=== PATIENT | female | born 1935 | race African-American/Black ===

== ENCOUNTER → 2017-04-26 | Outpatient (CLI) | payer MEDICARE, BC ==
[2017-04-26 11:02] LABS: Blood Urea Nitrogen 19 mg/dL (7-17); Non-African American GFR(MDRD) 60 (>60 ml/min/1.73 sqM)
--- NOTE | 2017-04-26 12:37 | CT ---
EXAMINATION TYPE: CT abdomen pelvis w con DATE OF EXAM: 04/26/2017 COMPARISON: 10/25/2013 HISTORY: LLQ pain CT DLP: 1778 mGycm CONTRAST: CT scan of the abdomen and pelvis is performed with Oral Contrast and with IV Contrast, patient injec anisha with 100 mL of Omnipaque 300. FINDINGS: LUNG BASES-: No visible nodule. No infiltrate. There is a small hiatal hernia. LIVER/GB: No calcified gallstones. No space occupying hepatic lesion. Biliary tree is of normal ca liber. PANCREAS: No inflammation. No distinct mass. SPLEEN: No splenic enlargement. No lesion seen. ADRENALS: No nodule. No thickening. KIDNEYS/BLADDER: No hydronephrosis. No nephrolithiasis. No disctinct renal mass. Urinary bladder g rossly unremarkable. BOWEL: There is minimal stranding surrounding the proximal sigmoid colon with superimposed diverticul osis felt to reflect very mild diverticulitis. No evidence for perforation or abscess. No obstructive changes seen. The appendix is not visualized. GENITAL ORGANS: No gross abnormality. LYMPH NODES: No greater than 1cm abdominal or pelvic lymph nodes are appreciated. AORTA: No significant abnormality. OSSEOUS STRUCTURES: Severe degenerative change of the lumbar spine with curvature identified. Postope rative changes of the hips. OTHER: No significant additional abnormality is seen. IMPRESSION: 1. Very mild uncomplicated diverticulitis of the proximal sigmoid colon.
== END | disposition home or self-care (01) ==
LOC: RADCTMAIN 10:18
PROVIDERS: ATTEND Family Medicine
DX: K57.32 Diverticulitis of large intestine without perforation or abscess without bleeding (principal); Z88.5 Allergy status to narcotic agent; Z88.8 Allergy status to other drugs, medicaments and biological substances
CPT/HCPCS: 82565; 84520; 74177; 36415; Q9967

== ENCOUNTER → 2018-03-21 | Outpatient (CLI) | payer MEDICARE, BC | END | disposition home or self-care (01) | LOC: LABWHC1 12:21 | PROVIDERS: ATTEND Otolaryngology | DX: D33.3 Benign neoplasm of cranial nerves (principal) | CPT/HCPCS: 36415; 82565; 84520 ==

== ENCOUNTER → 2018-04-11 | Outpatient (CLI) | payer MEDICARE, BC | END | disposition home or self-care (01) | LOC: RADMRIMAIN 17:29 | PROVIDERS: ATTEND Otolaryngology | DX: Z53.9 Procedure and treatment not carried out, unspecified reason (principal) ==

== ENCOUNTER → 2018-04-12 | Outpatient (CLI) | payer MEDICARE, BC ==
--- NOTE | 2018-04-12 08:44 | MR ---
EXAMINATION TYPE: MR brain and iac wo/w con DATE OF EXAM: 04/12/2018 COMPARISON: NONE HISTORY: Acoustic neuroma TECHNIQUE: Multiplanar, multisequence images of the brain and brainstem is performed without and with IV contras t, utilizing 9 mL intravenous Gadavist . FINDINGS: Diffusion weighted images demonstrate no evidence of a recent infarct or other diffusion ab normality. Changes of chronic sinusitis noted. There is mild to moderate generalized degenerative change. A few scattered areas of abnormal signal in the white matter are noted as well as in the periventricular re gion which are nonspecific but most typical remote microvascular ischemia. There is a stable 11 x 4 mm enhancing right cerebellar pontine angle mass. Midline structures demonstrate normal morphology. The craniocervical junction appears within normal limits. Partially empty sella turcica noted. Post contrast images demonstrate no abnormal enhancemen t. IMPRESSION: 1. 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 2. Stable degenerative and nonspecific white matter changes most typical of mild remote microvascular ischemia.
== END | disposition home or self-care (01) ==
LOC: RADMRIMAIN 06:57
PROVIDERS: ATTEND Otolaryngology
DX: R90.82 White matter disease, unspecified (principal); D33.3 Benign neoplasm of cranial nerves
CPT/HCPCS: 70553; A9581

== ENCOUNTER → 2019-04-01 | Outpatient (CLI) | payer MEDICARE, BC ==
--- NOTE | 2019-04-01 10:16 | MR ---
EXAMINATION TYPE: MR iac wo/w con DATE OF EXAM: 04/01/2019 COMPARISON: Prior MR brain 04/12/2018 HISTORY: R acoustic neuroma TECHNIQUE: Multiplanar, multisequence images of the brain and brainstem, small [id number] and high resolution images through the internal auditory canals is performed without and with IV contrast, utilizing 9.5 mL intravenous Gadavist . FINDINGS: Diffusion weighted images demonstrate no evidence of a recent infarct or other diffusion ab normality. The abnormal signal within the internal auditory canal is again noted and shows a similar appearance on the right. There is no extra-axial fluid collection or significant interval change in w bindu matter signal abnormality. The ventricular system and cisternal spaces are normal in size and a ppearance. The brain volume is age appropriate. Midline structures demonstrate stable morphology, there is a partially empty sella as on prior. The craniocervical junction appears within normal limits. Post contrast images demonstrate stable enhanc ement. The dural venous sinuses appear patent. The visualized sinuses are clear and the globes are in tact. IMPRESSION: Stable findings, findings compatible with acoustic neuroma on the right.
== END ==
LOC: RADMRIMAIN 09:00
PROVIDERS: ATTEND Family Medicine
DX: D33.3 Benign neoplasm of cranial nerves (principal)
CPT/HCPCS: 70553; A9585

== ENCOUNTER → 2020-05-29 | Outpatient (CLI) | payer MEDICARE, BC ==
--- NOTE | 2020-05-29 22:11 | MR ---
EXAMINATION TYPE: MR lumbar spine wo con DATE OF EXAM: 05/29/2020 COMPARISON: None HISTORY: Chronic low back pain, stenosis. History surgery CONTRAST: 0 mL intravenous Gadavist. TECHNIQUE: Multiplanar, multisequence images of the lumbar spine were acquired. FINDINGS: L5-S1: There is loss of disc height is level. Facet hypertrophy has left posterior lateral thecal sac compression. Moderate right and severe left foraminal stenosis present. No AP spinal canal stenosis is present. L4-L5: Significant disc bulge is evident. Facet hypertrophy is posterior lateral thecal sac compressi on. Moderate bilateral foraminal narrowing is present from facet hypertrophy. L3-L4: L disc bulging is anterior thecal sac flattening. Facet hypertrophy is posterior lateral theca l sac compression. Mild lateral canal narrowing may be present. Moderate to severe right and severe l eft foraminal stenosis is present. L2-L3: Broad-based disc bulge is present with anterior thecal sac flattening. Facet hypertrophy is pr esent on the left with left posterior lateral thecal sac compression. There is moderate to severe lef t foraminal stenosis. L1-L2: Mild disc bulge is present with anterior thecal sac flattening. No AP spinal canal stenosis pr esent. Facet hypertrophy is present. T12-L1: There is loss of disc height is level. Facet hypertrophy is present with posterior lateral th ecal sac compression. Mild foraminal narrowing is present. Cord terminates at T12-L1 level. Vertebral body heights are preserved. Disc desiccation is present. S coliosis is present. IMPRESSION: 1. Degenerative disc changes greatest at L5-S1 and at the T12-L1 and L1-2 levels. 2. Facet hypertrophy throughout the lumbar spine contributing to moderate to severe foraminal narrowi ng discussed above. Some lateral canal narrowing may be present to mild degree L3-L4 secondary to fac et hypertrophy
== END | disposition home or self-care (01) ==
LOC: RADMRIMAIN 16:25
PROVIDERS: ATTEND Neurological Surgery
DX: M48.061 Spinal stenosis, lumbar region without neurogenic claudication (principal); M47.895 Other spondylosis, thoracolumbar region; M47.896 Other spondylosis, lumbar region; M47.897 Other spondylosis, lumbosacral region
CPT/HCPCS: 72148

== ENCOUNTER → 2021-07-23 | Outpatient (CLI) | payer MEDICARE, BC ==
--- NOTE | 2021-07-23 16:28 | MR ---
EXAMINATION TYPE: MR iac wo/w con DATE OF EXAM: 07/23/2021 COMPARISON: Prior exam are I IAC dated 04/01/2019 HISTORY: Right side hearing loss, acoustic neuroma. TECHNIQUE: Multiplanar, multisequence images of the brain and brainstem is performed without and with IV contras t, utilizing 10 mL intravenous Gadavist , small [id number] high-resolution images obtained through the internal auditory canals. FINDINGS: Diffusion weighted images demonstrate no evidence of a recent infarct or other diffusion ab normality. There is no extra-axial fluid collection or significant interval change in white matter s ignal abnormality, scattered pericallosal, subcortical hyperintensities are again noted within the de ep white matter and inversion recovery and T2-weighted sequences. The ventricular system and cistern al spaces are normal in size and appearance. The brain volume is age appropriate. Abnormal soft tissue again noted along the intracanalicular portion of the right internal auditory ca nal. Midline structures demonstrate stable morphology, there is a partially descended left. The craniocer vical junction appears within normal limits. Post contrast images demonstrate stable enhancement felix ng the internal auditory canal on the right. The dural venous sinuses appear patent. The visualized s inuses are clear and the globes are intact. 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
== END | disposition home or self-care (01) ==
LOC: RADMRIMAIN 14:52
PROVIDERS: ATTEND Otolaryngology
DX: D33.3 Benign neoplasm of cranial nerves (principal)
CPT/HCPCS: 70553; A9585